=== PATIENT | female | born 1975 | race Caucasian/White ===

== ENCOUNTER 2016-10-02 00:38 | Emergency (ER) | payer OTHER ==
[2016-10-02 00:44] VITALS: BMI 23.4
[2016-10-02 01:37] LABS: BILIRUBIN,URINE NEGATIVE (NEGATIVE); BLOOD/HEMOGLOBIN,URINE 5+ (NEGATIVE); GLUCOSE, URINE NEGATIVE (NEGATIVE); KETONES,URINE NEGATIVE (NEGATIVE); LEUKOCYTE ESTERASE ,URINE NEGATIVE (NEGATIVE); NITRITES,URINE NEGATIVE (NEGATIVE); PROTEIN,URINE 1+ (NEGATIVE); UROBILINOGEN,URINE NORMAL (NORMAL)
[2016-10-02 01:49] LABS: APPEARANCE,URINE SLIGHTLY HAZY (CLEAR); BACTERIA,URINE TRACE /HPF (NEGATIVE); COLOR,URINE YELLOW (YELLOW); RBC,URINE 50-60 /HPF (NEGATIVE); SQUAMOUS EPITHELIAL CELL,UR MANY /HPF (NEGATIVE)
[2016-10-02] MEDS ORDERED: TORADOL 60 MG VIAL IM ONE (02:16)
[2016-10-02] MEDS ORDERED: NS 500 ML IV 500 ML IV ONE ×2 (02:16→02:58)
--- NOTE | 2016-10-02 02:19 | ED.ABDFE ---
HPI - Time seen Time seen: 02:00 - PCP Primary Care Physician: ERIBERTO - HPI Comment HPI Comment: Pt c/o RLQ pain w/o F/C/N/V/D/C.. She is with menses and had a c- section and BTL in April 2016.Pain is rated @7/10. - Complaint Chief Complaint Doctors Comments: "RLQ pain" Chief Complaint:: RIGHT SIDE LOWER ABD PAIN SINCE APPROX 1999 TONIGHT, DENIES ANY N/V/D. - Nurses notes reviewed Nurses Notes Review: Yes - Source History Provided: Patient - Mode of arrival Mode of Arrival: Ambulatory - Timing Onset of Chief Complaint: 10/01/16 Came on: Suddenly - Duration Duration: Intermittent How lon Duration: Hours - Location Location: RLQ - Severity Severity: Moderate - Quality Quality: Cramping - Context Onset: Suddenly : 2 Para: 2 LNMP: 10/02/16 History of: Abdominal surgery - Modifying Worsening Factors: Position, Movement Improving Factors: Nothing - Associated signs and symptoms Associated Signs and Symptoms: None <GURJIT JAUREGUI - Last Filed: 10/02/16 05:30> PMH - PMH Past Medical History: Yes Past Medical History: Hypertension Past Medical History Comment: POSSIBLE KIDNEY STONE WHILE IN MARCH( HURT ON LEFT FLANK/BACK THEN) Past Surgical History: Yes Surgical History: , Other Past Surgical History Comment: TUBALIGATION - Family History History of Family Medical Conditions: Yes Family Medical History: Diabetes Mellitus, Cancer, Hypertension - Social History Does patient currently use any type of tobacco product: No Have you used tobacco products in the last 12 months: No Type of Tobacco Use: None Does any household member use tobacco: No Alcohol Use: None Do you use any recreational Drugs:: No Lives With: Spouse, Family Lives Where: Home - infectious screening Have you traveled outside the country in the last 6 months?: No Isolation: Standard <GURJIT JAUREGUI - Last Filed: 10/02/16 05:30> ROS - Review of Systems Constitutional: No Symptoms Reported Respiratoy: No Symptoms Reported Cardiovascular: No Symptoms Reported Gastrointestinal/Abdominal: Abdominal Pain Genitourinary: Pain Neurological: No Symptoms Reported Musculoskeletal: No Symptoms Reported Integumentary: No Symptoms Reported Hematologic/Lymphatic: No Symptoms Reported Endocrine: No Symptoms Reported Psychiatric: No Symptoms Reported All Other Systems: Reviewed and Negative <GURJIT JAUREGUI - Last Filed: 10/02/16 05:30> PE - General Limitations: No Limitations General Appearance: Alert, In No Apparent Distress - Head Head Exam: Normal Inspection, Atraumatic - Chest Chest Inspection: Normal Inspection, Symmetric Chest Wall Rise - Respiratory Respiratory Exam: Normal Lung Sounds Bilat Respiratory Exam: Bilateral Clear to Auscultation - Cardiovascular Cardiovascular Exam: Regular Rate, Normal Rhythm, Normal Heart Sounds - Abdominal Exam Abdominal Exam: Normal Bowel Sounds, Soft, Tenderness. negative: Guarding, Rebound, Rigidity, Dimnished Bowel Sounds, Hyperactive Bowel Sounds Abdominal Tenderness: RLQ - Rectal Rectal Exam: Deferred - Back Back Exam: Normal Inspection, Full ROM - Extremeties Extremities Exam: Normal Inspection - External Exam: Female: Normal External Exam : Speculum Exam (Female): Deferred : Bimanual Exam (female): Deferred - Neurologic Neurological Exam: Alert, Oriented X3, CN II-XII Intact - Psychiatric Psychiatric Exam: Normal Affect, Normal Mood - Skin Skin Exam: Warm, Dry, Intact, Normal Color <GURJIT JAUREGUI - Last Filed: 10/02/16 05:30> MDM - Differential Diagnosis Differential Diagnosis- Considerations may include:: Appendicitis, Dysmenorrhea , Inflammatory BD, Ovarian cyst/torsion, Urolithiasis <GURJIT JAUREGUI - Last Filed: 10/02/16 05:30> Course - Reevaluation 1st: Improved (05/25) <GURJIT JAUREGUI - Last Filed: 10/02/16 05:30> - Consultation Called: 08:35 (Dr Hdz agreed to [facility] Call Returned: 08:40 (Agreed to see this PM) <REAGAN BENJAMIN - Last Filed: 10/02/16 08:55> ROR - Labs Reviewed Laboratory Results Reviewed?: Yes Result Diagrams: 10/02/16 02:25 10/02/16 02:25 - XRAY XRAY Interpreted by: Radiologist (no acute findings but cannot exclude early acute appendicitis.) <GURJIT JAUREGUI - Last Filed: 10/02/16 05:30> - Labs Reviewed Result Diagrams: 10/02/16 02:25 10/02/16 02:25 - XRAY XRAY Interpreted by: Radiologist (The appendix is prominent with hyper enhancing wall. This is probably best demonstrated on coronal image 21 the appendix measures 9mm. There is surrounding stranding as well. Kidneys and vasculature are normal.Impression: early acute appendicitis favored. Surgical consultation recommended. No other acute abnormality.) <REAGAN BENJAMIN - Last Filed: 10/02/16 08:55> - Labs Reviewed Laboratory: WBC 5.8 X10^3/uL (3.6-10.0) 10/02/16 02:25 RBC 4.15 X10^6/uL (3.5-5.4) 10/02/16 02:25 Hgb 13.2 g/dL (12.0-16.0) 10/02/16 02:25 Hct 37.7 % (36.0-47.0) 10/02/16 02:25 MCV 90.8 fL (80.0-100.0) 10/02/16 02:25 MCH 31.8 pg (27.0-34.0) 10/02/16 02:25 MCHC 35.1 g/dL (33.0-35.0) H 10/02/16 02:25 RDW 12.2 % (11.6-16.5) 10/02/16 02:25 Plt Count 175 X10^3/uL (150.0-450.0) 10/02/16 02:25 MPV 8.5 fL (7.4-11.0) 10/02/16 02:25 Neut % 80.5 % (42.0-75.0) H 10/02/16 02:25 Lymph % 12.0 % (21.0-51.0) L 10/02/16 02:25 [place] % 5.1 % (0.0-13.0) 10/02/16 02:25 Eos % 2.0 % (0.9-2.9) 10/02/16 02:25 Baso % 0.4 % (0.2-1.0) 10/02/16 02:25 Neut # 4.7 x10^3/uL (2.2-4.8) 10/02/16 02:25 Lymph # 0.7 X10^3/uL (1.3-2.9) L 10/02/16 02:25 [place] # 0.3 x10^3/uL (0.3-0.8) 10/02/16 02:25 Eos # 0.1 x10^3/uL (0.0-0.2) 10/02/16 02:25 Baso # 0.0 X10^3/uL (0.0-0.1) 10/02/16 02:25 Absolute Nucleated RBC 0.0 /100WBC 10/02/16 02:25 Sodium 142 mmol/L (136-145) 10/02/16 02:25 Corrected Sodium TNP 10/02/16 02:25 Potassium 4.0 mmol/L (3.5-5.1) 10/02/16 02:25 Chloride 106 mmol/L (98-107) 10/02/16 02:25 Carbon Dioxide 29.6 mmol/L (21-32) 10/02/16 02:25 BUN 9 mg/dL (7-18) 10/02/16 02:25 Creatinine 0.92 mg/dL (0.55-1.02) 10/02/16 02:25 Est GFR (MDRD) Af Amer > 60 (>60) 10/02/16 02:25 Est GFR (MDRD) Non-Af > 60 (>60) 10/02/16 02:25 Glucose 94 mg/dL (65-99) 10/02/16 02:25 Calcium 8.3 mg/dL (8.5-10.1) L 10/02/16 02:25 Corrected Calcium TNP 10/02/16 02:25 Total Bilirubin 0.70 mg/dL (0.2-1.0) 10/02/16 02:25 AST 13 Units/L (15-37) L 10/02/16 02:25 ALT 19 Units/L (12-78) 10/02/16 02:25 Alkaline Phosphatase 56 Units/L (46-116) 10/02/16 02:25 Total Protein 7.1 g/dL (6.4-8.2) 10/02/16 02:25 Albumin 3.9 g/dL (3.4-5.0) 10/02/16 02:25 Globulin 3.2 g/dL (2.5-4.5) 10/02/16 02:25 Albumin/Globulin Ratio 1.2 Ratio (1.1-2.1) 10/02/16 02:25 HCG, Qual Negative <10 mIU/mL 10/02/16 02:25 Specimen Type Clean catch urine 10/02/16 01:19 Urine Color Yellow (YELLOW) 10/02/16 01:19 Urine Appearance Slightly hazy (CLEAR) 10/02/16 01:19 Urine pH 6.0 (5.0 - 8.0) 10/02/16 01:19 Ur Specific [place] 1.015 (1.000-1.030) 10/02/16 01:19 Urine Protein 1+ (NEGATIVE) 10/02/16 01:19 Urine Glucose (UA) Negative (NEGATIVE) 10/02/16 01:19 Urine Ketones Negative (NEGATIVE) 10/02/16 01:19 Urine Occult Blood 5+ (NEGATIVE) 10/02/16 01:19 Urine Nitrite Negative (NEGATIVE) 10/02/16 01:19 Urine Bilirubin Negative (NEGATIVE) 10/02/16 01:19 Urine Urobilinogen Normal (NORMAL) 10/02/16 01:19 Ur Leukocyte Esterase Negative (NEGATIVE) 10/02/16 01:19 Urine RBC 50-60 /HPF (NEGATIVE) 10/02/16 01:19 Urine WBC 0-3 /HPF (NEGATIVE) 10/02/16 01:19 Ur Squamous Epith Cells Many /HPF (NEGATIVE) 10/02/16 01:19 Urine Bacteria Trace /HPF (NEGATIVE) 10/02/16 01:19 Ur Culture Indicated? No/not indicated 10/02/16 01:19 (GURJIT JAUREGUI) (REAGAN BENJAMIN) <GURJIT JAUREGUI - Last Filed: 10/02/16 05:30> <REAGAN BENJAMIN - Last Filed: 10/02/16 08:55> - Diagnosis Discharge Problem: Abdominal pain Qualifiers: Abdominal location: right lower quadrant Qualified Code(s): R10.31 - Right lower quadrant pain Appendicitis Qualifiers: Appendicitis type: acute appendicitis Acute appendicitis type: unspecified acute appendicitis type Qualified Code(s): K35.80 - Unspecified acute appendicitis - Discharge Plan Disposition: 01 HOME, SELF-CARE Condition: Stable Prescriptions: Naproxen Sodium [Anaprox Ds] 550 mg PO BID #30 tablet - Follow ups/Referrals Follow ups/Referrals: NFD,None [Primary Care Provider] - 3 days - Instructions Instructions: Abdominal Pain, Adult, [id number]
[2016-10-02 02:36] LABS: BASOPHILS % (AUTO) 0.4 % (0.2-1.0); EOSINOPHILS # (AUTO) 0.1 x10^3/uL (0.0-0.2); HEMATOCRIT 37.7 % (36.0-47.0); HEMOGLOBIN 13.2 g/dL (12.0-16.0); LYMPHOCYTES # (AUTO) 0.7 X10^3/uL (1.3-2.9); MEAN CORPUSCULAR HEMOGLOBIN 31.8 pg (27.0-34.0); MEAN CORPUSCULAR HGB CONC 35.1 g/dL (33.0-35.0); MEAN CORPUSCULAR VOLUME 90.8 fL (80.0-100.0); MEAN PLATELET VOLUME 8.5 fL (7.4-11.0); MONOCYTES # (AUTO) 0.3 x10^3/uL (0.3-0.8); MONOCYTES % (AUTO) 5.1 % (0.0-13.0); NEUTROPHILS # (AUTO) 4.7 x10^3/uL (2.2-4.8); NEUTROPHILS % (AUTO) 80.5 % (42.0-75.0); PLATELET COUNT 175 X10^3/uL (150.0-450.0); RED BLOOD COUNT 4.15 X10^6/uL (3.5-5.4); RED CELL DISTRIBUTION WIDTH 12.2 % (11.6-16.5); WHITE BLOOD COUNT 5.8 X10^3/uL (3.6-10.0)
[2016-10-02 02:46] LABS: ALANINE AMINOTRANSFERASE 19 Units/L (12-78); ALBUMIN 3.9 g/dL (3.4-5.0); ALKALINE PHOSPHATASE 56 Units/L (46-116); ASPARTATE AMINO TRANSFERASE 13 Units/L (15-37); BLOOD UREA NITROGEN 9 mg/dL (7-18); CALCIUM 8.3 mg/dL (8.5-10.1); CARBON DIOXIDE 29.6 mmol/L (21-32); CHLORIDE 106 mmol/L (98-107); CREATININE 0.92 mg/dL (0.55-1.02); GLUCOSE 94 mg/dL (65-99); SODIUM 142 mmol/L (136-145); TOTAL PROTEIN 7.1 g/dL (6.4-8.2); eGFR BLACK RACES > 60 (>60); eGFR NON BLACK RACES > 60 (>60)
[2016-10-02] MEDS ORDERED: TORADOL 60 MG VIAL ONE (02:58)
[2016-10-02 03:10] LABS: SERUM PREGNANCY TEST, QUAL NEGATIVE <10 mIU/mL
--- NOTE | 2016-10-02 03:27 | CT ---
CT abdomen and pelvis without contrast Indication: Right-sided pelvic pain. Comparison: None Technique: CT images of the abdomen and pelvis were obtained without contrast. Automatic exposure co ntrol was utilized. Findings: The lung bases are clear. No acute skeletal abnormality identified. Evaluation is limited by lack of contrast. Accounting for this, the liver, gallbladder, spleen, stom ach, duodenum, pancreas, adrenals, and kidneys are within normal limits. No ureteral stone identifie d. The visualized portions of the appendix appear grossly normal in size, although there is minimal fat stranding seen within the pericecal right lower quadrant. No significant bowel thickening or dil atation of the lower GI tract is identified. The uterus and ovaries are noted. No large pelvic mass is seen. The urinary bladder and rectum are unremarkable. Impression: There is minimal pericecal fat stranding, although the appendix appears grossly normal in caliber. E nelda/mild appendicitis cannot be excluded. Otherwise no etiology for patient's symptoms identified. Reported By:
[2016-10-02] MEDS ORDERED: PHENERGAN INJ 25 MG IVP ONE (05:35)
[2016-10-02] MEDS ORDERED: MORPHINE SULFATE INJ 4 MG IVP ONE (05:35)
[2016-10-02] MEDS ORDERED: NS 100 ML IV 100 ML IV ONE (07:03)
--- NOTE | 2016-10-02 08:08 | CT ---
CT abdomen and pelvis with contrast Indication: Abdomen pain and pelvic pain. Technique: Helical images through the abdomen and pelvis after IV and oral contrast. Coronal and sag ittal reformats provided. Findings: Review of bone windows shows no destructive osseous lesion. Limited images through lower c hest demonstrates no acute abnormality. Abdomen: The liver, gallbladder, spleen, adrenal glands, pancreas, stomach and small bowel appear no rmal. No acute colonic abnormality seen. The appendix is prominent with hyper enhancing wall. This i s probably best demonstrated on coronal image 21 the appendix measures 9 mm on this image. There is surrounding stranding as well. Kidneys and vasculature are normal. Pelvis: The urinary bladder, rectum and uterus are normal. No adnexal region lesion seen. Impression: 1. Early acute appendicitis favored . Surgical consultation recommended. 2. No other acute abnormality. Reported By:
[2016-10-02] MEDS ORDERED: MORPHINE SULFATE INJ 4 MG IVP PRN (09:44)
[2016-10-02] MEDS ORDERED: ZOFRAN INJ 4 MG VIAL IVP PRN ×2 (09:45→17:19)
[2016-10-02] MEDS: NS 1000 ML 1,000 ML IV SCH ×2 (09:57→20:53)
[2016-10-02] MEDS: NS IV SCH ×3 (13:23→21:00)
[2016-10-02] MEDS: SPIKE MINIBAG IV SCH ×3 (13:23→21:00)
[2016-10-02] MEDS: MEFOXIN IV SCH ×3 (13:23→21:00)
[2016-10-02] MEDS ORDERED: LR 1000 ML IV 1,000 ML IV ONE ×2 (14:06→16:57)
[2016-10-02] MEDS ORDERED: MARCAINE/EPINEPHRINE ONE (14:08)
[2016-10-02] MEDS ORDERED: XYLOCAINE 1 % (PLAIN) ONE (14:08)
[2016-10-02] MEDS ORDERED: QUELICIN (OR ANECTINE) ONE (14:36)
[2016-10-02] MEDS ORDERED: ROBINUL ONE (14:36)
[2016-10-02] MEDS ORDERED: NORCURON INJ 10 MG VIAL ONE (14:36)
[2016-10-02] MEDS ORDERED: XYLOCAINE 2 % (PLAIN) ONE (14:36)
[2016-10-02] MEDS ORDERED: DIPRIVAN VIAL ONE (14:36)
[2016-10-02] MEDS ORDERED: NEOSTIGMINE INJ ONE (14:36)
[2016-10-02] MEDS ORDERED: LTA KIT LIDOCAINE 4% ONE (14:36)
[2016-10-02] MEDS ORDERED: REGLAN INJ 10 MG VIAL ONE (14:36)
[2016-10-02] MEDS ORDERED: VERSED ONE (14:36)
[2016-10-02] MEDS ORDERED: ZOFRAN INJ 4 MG VIAL ONE (14:36)
[2016-10-02] MEDS ORDERED: SUPRANE IN ONE (14:36)
[2016-10-02] MEDS ORDERED: FENTANYL INJ 250 mcg ONE (15:35)
[2016-10-02] MEDS ORDERED: DECADRON INJ ONE (16:15)
[2016-10-02] MEDS ORDERED: NS IRRIGATION 3000 ML 3,000 ML IR ONE (16:52)
[2016-10-02] MEDS ORDERED: PERCOCET TAB 5/325 MG PO PRN (17:19)
[2016-10-02] MEDS ORDERED: DILAUDID INJ IVP PRN (17:19)
[2016-10-02] MEDS ORDERED: REGLAN INJ 10 MG VIAL IVP PRN (17:19)
[2016-10-02] MEDS ORDERED: MORPHINE SULFATE INJ 2 MG IVP PRN (17:19)
[2016-10-02] MEDS ORDERED: BENADRYL INJ 50 MG VIAL IVP PRN (17:19)
[2016-10-02] MEDS ORDERED: PHENERGAN INJ 25 MG IVP PRN (17:19)
--- NOTE | 2016-10-02 17:29 | OR.GENERIC ---
Post-Op Note Generic - Post-Op Note Operative Report: Date of Operation: October 02, 2016 Pre-Operative Diagnosis: Acute appendicitis. Post-Operative Diagnosis: Acute appendicitis. Procedure: Laparoscopic appendectomy. Surgeon: Amilcar Dubose MD. Optical Instrument Inspector: Kyle garcia CRNA. Specimen: Appendix. Estimated blood loss: Minimal. Complications: None. Summary: The patient is a 41 year old female who presented with abdominal pain. A CT of the abdomen and pelvis demonstrated appendicitis. The patient was offered appendectomy. The risk and benefits of the procedure including difficulty with anesthesia, bleeding, infection, conversion to open procedure, hernia formation , DVT, as well as PE were discussed with the patient. The patient understood these risks and requested the procedure. On October 02, 2016, the patient was brought to the operative theatre. A time out was performed verifying the patient and procedure. The patient received Ancef for pre-operative antibiosis. After satisfactory induction of general endotracheal anesthesia, the abdomen was prepped with Chloraprep and draped in the usual sterile fashion. The skin and subcutaneous tissue at the umbilicus was anesthetized using local anesthetic. The skin was incised sharply. A 12 mm trocar was placed though the incision and into the peritoneal cavity using the Germaine technique. Carbon dioxide was infiltrated through this trocar to obtain a pneumoperitoneum of 15 mm Hg. A camera was placed through this trocar and swept in all directions. No injury was seen from entering the peritoneal cavity. A site was selected in the right upper quadrant for our 2nd trocar. The skin and fascia was anesthetized using local anesthetic. The skin was incised sharply. A 5 mm trocar was placed into the peritoneal cavity under direct visualization. An additional 5 mm trocar was placed in the left lower quadrant in a similar fashion. The cecum was elevated. Mild inflammation was noted along the appendix. The appendix was elevated and a window made in the mesoappendix. The appendix was divided at the cecum using a SILVINA stapler with a tissue load. The mesoappendix was divided using a SILVINA stapler with vascular load. Arterial bleeding was noted from the mesoappendix staple line. This was controlled using an endoclip x2. No further bleeding was seen. Both staple lines were irrigated. Mild oozing was noted from the cecal staple line. This was controlled using minimal hook electrocautery. Both staple lines were again irrigated and no further bleeding seen. The appendix was placed in an endobag and removed through the umbilical trocar site. The trocar and camera were placed back inside the abdomen. All irrigation fluid was removed. The 5 mm trocars were removed under direct visualization and no bleeding seen. The umbilical trocar was removed and insufflation evacuated. The fascia at the umbilicus was re-approximated using a 0-Vicryl placed in a [id number] configuration. The skin edges at all incisions were re-approximated using inverted, interrupted 4-0 Monocryl sutures. Benzoin and Steri-strips were placed. Sterile dressings were placed. The patient was awakened and taken to the recovery room in stable condition. There were no complications. All counts were correct.
[2016-10-02] MEDS ORDERED: NORMODYNE TAB 100 MG PO SCH (21:18)
[2016-10-03] MEDS: NS 1000 ML 1,000 ML IV SCH (05:45)
[2016-10-03] MEDS: SPIKE MINIBAG IV SCH ×2 (05:45→12:15)
[2016-10-03] MEDS: NS IV SCH ×2 (05:45→12:15)
[2016-10-03] MEDS: MEFOXIN IV SCH ×2 (05:45→12:15)
[2016-10-03 06:15] LABS: ALANINE AMINOTRANSFERASE 17 Units/L (12-78); ALBUMIN 3.3 g/dL (3.4-5.0); ALKALINE PHOSPHATASE 54 Units/L (46-116); ASPARTATE AMINO TRANSFERASE 13 Units/L (15-37); BLOOD UREA NITROGEN 6 mg/dL (7-18); CALCIUM 8.4 mg/dL (8.5-10.1); CARBON DIOXIDE 28.2 mmol/L (21-32); CHLORIDE 104 mmol/L (98-107); COR NA(FOR HYPERGLY) 139 mmol/L (136-145); GLUCOSE 119 mg/dL (65-99); SODIUM 139 mmol/L (136-145); TOTAL PROTEIN 6.4 g/dL (6.4-8.2); eGFR BLACK RACES > 60 (>60); eGFR NON BLACK RACES > 60 (>60)
[2016-10-03 06:33] LABS: BASOPHILS % (AUTO) 0.1 % (0.2-1.0); HEMATOCRIT 33.1 % (36.0-47.0); HEMOGLOBIN 11.8 g/dL (12.0-16.0); LYMPHOCYTES # (AUTO) 0.3 X10^3/uL (1.3-2.9); LYMPHOCYTES % (AUTO) 6.6 % (21.0-51.0); MEAN CORPUSCULAR HEMOGLOBIN 32.2 pg (27.0-34.0); MEAN CORPUSCULAR HGB CONC 35.7 g/dL (33.0-35.0); MEAN CORPUSCULAR VOLUME 90.2 fL (80.0-100.0); MEAN PLATELET VOLUME 8.9 fL (7.4-11.0); MONOCYTES # (AUTO) 0.2 x10^3/uL (0.3-0.8); MONOCYTES % (AUTO) 3.7 % (0.0-13.0); NEUTROPHILS # (AUTO) 3.8 x10^3/uL (2.2-4.8); NEUTROPHILS % (AUTO) 89.6 % (42.0-75.0); PLATELET COUNT 142 X10^3/uL (150.0-450.0); RED BLOOD COUNT 3.67 X10^6/uL (3.5-5.4); RED CELL DISTRIBUTION WIDTH 12.1 % (11.6-16.5); WHITE BLOOD COUNT 4.2 X10^3/uL (3.6-10.0)
--- NOTE | 2016-10-03 08:54 | PCM.PROG ---
Progress Note - Progress Note for Day of Date: 10/03/16 - Subjective Subjective: Pre-op pain resolved. Admits to surgical pain but minimal. Tolerating diet. (+) OOB. - Past Medical Family Social History Allergies: Allergies MS No Known Drug Allergy [No Known Drug Allergy] Allergy (Verified 10/02/16 00: 45) - Vital Signs and I&O's Vital Signs: Temperature 97.9 F Pulse Rate [Right Brachial] 94 Pulse Rate 81 Respiratory Rate 20 Blood Pressure [Right Arm] 110/62 Blood Pressure [Left Arm] 113/71 Blood Pressure 127/71 O2 Sat by Pulse Oximetry 97 Intake and Output: Intake & Output 09/30/16 10/01/16 10/02/16 10/03/16 11:59 11:59 11:59 11:59 Intake Total 1115 Output Total 525 Balance 590 - Physical Exam Oriented: Normal Respiratory: Normal Cardiovascular: Normal Auscultation: Bowel Sounds: Normal Palpation: Normal, Other Tenderness: Other (Approp. TTP) Skin: Normal, Other (Dressings C/D/I.) Psychiatric: Normal Mood Description: Calm Speech Pattern: Clear, Appropriate - Laboratory and Diagnostics Result Diagrams: 10/03/16 04:45 10/03/16 04:45 Labs: Laboratory WBC 4.2 X10^3/uL (3.6-10.0) 10/03/16 04:45 RBC 3.67 X10^6/uL (3.5-5.4) 10/03/16 04:45 Hgb 11.8 g/dL (12.0-16.0) L 10/03/16 04:45 Hct 33.1 % (36.0-47.0) L 10/03/16 04:45 MCV 90.2 fL (80.0-100.0) 10/03/16 04:45 MCH 32.2 pg (27.0-34.0) 10/03/16 04:45 MCHC 35.7 g/dL (33.0-35.0) H 10/03/16 04:45 RDW 12.1 % (11.6-16.5) 10/03/16 04:45 Plt Count 142 X10^3/uL (150.0-450.0) L 10/03/16 04:45 MPV 8.9 fL (7.4-11.0) 10/03/16 04:45 Neut % 89.6 % (42.0-75.0) H 10/03/16 04:45 Lymph % 6.6 % (21.0-51.0) L 10/03/16 04:45 [place] % 3.7 % (0.0-13.0) 10/03/16 04:45 Eos % 0.0 % (0.9-2.9) L 10/03/16 04:45 Baso % 0.1 % (0.2-1.0) L 10/03/16 04:45 Neut # 3.8 x10^3/uL (2.2-4.8) 10/03/16 04:45 Lymph # 0.3 X10^3/uL (1.3-2.9) L 10/03/16 04:45 [place] # 0.2 x10^3/uL (0.3-0.8) L 10/03/16 04:45 Eos # 0.0 x10^3/uL (0.0-0.2) 10/03/16 04:45 Baso # 0.0 X10^3/uL (0.0-0.1) 10/03/16 04:45 Absolute Nucleated RBC 0.0 /100WBC 10/03/16 04:45 Sodium 139 mmol/L (136-145) 10/03/16 04:45 Corrected Sodium 139 mmol/L (136-145) 10/03/16 04:45 Potassium 4.4 mmol/L (3.5-5.1) 10/03/16 04:45 Chloride 104 mmol/L (98-107) 10/03/16 04:45 Carbon Dioxide 28.2 mmol/L (21-32) 10/03/16 04:45 BUN 6 mg/dL (7-18) L 10/03/16 04:45 Creatinine 0.80 mg/dL (0.55-1.02) 10/03/16 04:45 Est GFR (MDRD) Af Amer > 60 (>60) 10/03/16 04:45 Est GFR (MDRD) Non-Af > 60 (>60) 10/03/16 04:45 Glucose 119 mg/dL (65-99) H 10/03/16 04:45 Calcium 8.4 mg/dL (8.5-10.1) L 10/03/16 04:45 Corrected Calcium 9.0 mg/dL (8.5-10.1) 10/03/16 04:45 Total Bilirubin 1.30 mg/dL (0.2-1.0) H 10/03/16 04:45 AST 13 Units/L (15-37) L 10/03/16 04:45 ALT 17 Units/L (12-78) 10/03/16 04:45 Alkaline Phosphatase 54 Units/L (46-116) 10/03/16 04:45 Total Protein 6.4 g/dL (6.4-8.2) 10/03/16 04:45 Albumin 3.3 g/dL (3.4-5.0) L 10/03/16 04:45 Globulin 3.1 g/dL (2.5-4.5) 10/03/16 04:45 Albumin/Globulin Ratio 1.1 Ratio (1.1-2.1) 10/03/16 04:45 HCG, Qual Negative <10 mIU/mL 10/02/16 02:25 Specimen Type Clean catch urine 10/02/16 01:19 Urine Color Yellow (YELLOW) 10/02/16 01:19 Urine Appearance Slightly hazy (CLEAR) 10/02/16 01:19 Urine pH 6.0 (5.0 - 8.0) 10/02/16 01:19 Ur Specific [place] 1.015 (1.000-1.030) 10/02/16 01:19 Urine Protein 1+ (NEGATIVE) 10/02/16 01:19 Urine Glucose (UA) Negative (NEGATIVE) 10/02/16 01:19 Urine Ketones Negative (NEGATIVE) 10/02/16 01:19 Urine Occult Blood 5+ (NEGATIVE) 10/02/16 01:19 Urine Nitrite Negative (NEGATIVE) 10/02/16 01:19 Urine Bilirubin Negative (NEGATIVE) 10/02/16 01:19 Urine Urobilinogen Normal (NORMAL) 10/02/16 01:19 Ur Leukocyte Esterase Negative (NEGATIVE) 10/02/16 01:19 Urine RBC 50-60 /HPF (NEGATIVE) 10/02/16 01:19 Urine WBC 0-3 /HPF (NEGATIVE) 10/02/16 01:19 Ur Squamous Epith Cells Many /HPF (NEGATIVE) 10/02/16 01:19 Urine Bacteria Trace /HPF (NEGATIVE) 10/02/16 01:19 Ur Culture Indicated? No/not indicated 10/02/16 01:19 Tissue Pathology To follow 10/02/16 16:50 - Plan (1) Appendicitis Status: Acute Qualifiers: Appendicitis type: acute appendicitis Acute appendicitis type: unspecified acute appendicitis type Qualified Code(s): K35.80 - Unspecified acute appendicitis Narrative Support Text: POD #1 lap appy. AFVSS. Pain resolved. Mesoappendix staple line bleed at time of surgery. H/H dereased. Re-check at noon. If stable, OK discharge from surgery standpoint. Plan: Recheck H/H at noon. If stable discharge home. Routine post-op care.
[2016-10-03 11:56] LABS: BASOPHILS % (AUTO) 0.4 % (0.2-1.0); EOSINOPHILS % (AUTO) 0.2 % (0.9-2.9); HEMATOCRIT 33.9 % (36.0-47.0); HEMOGLOBIN 11.9 g/dL (12.0-16.0); LYMPHOCYTES # (AUTO) 0.6 X10^3/uL (1.3-2.9); LYMPHOCYTES % (AUTO) 11.5 % (21.0-51.0); MEAN CORPUSCULAR HEMOGLOBIN 31.8 pg (27.0-34.0); MEAN CORPUSCULAR HGB CONC 35.2 g/dL (33.0-35.0); MEAN CORPUSCULAR VOLUME 90.2 fL (80.0-100.0); MEAN PLATELET VOLUME 8.6 fL (7.4-11.0); MONOCYTES # (AUTO) 0.3 x10^3/uL (0.3-0.8); MONOCYTES % (AUTO) 5.6 % (0.0-13.0); NEUTROPHILS % (AUTO) 82.3 % (42.0-75.0); PLATELET COUNT 153 X10^3/uL (150.0-450.0); RED BLOOD COUNT 3.76 X10^6/uL (3.5-5.4); RED CELL DISTRIBUTION WIDTH 12.1 % (11.6-16.5); WHITE BLOOD COUNT 4.9 X10^3/uL (3.6-10.0)
[2016-10-03 14:01] VITALS: BP 134/79
== END 2016-10-03 14:35 | disposition home or self-care (01) ==
LOC: ER 00:38 → MED/SURG 10:10
PROVIDERS: ADMIT Internal Medicine; ATTEND Internal Medicine
PROC: 0DTJ4ZZ Resection of Appendix, Percutaneous Endoscopic Approach (ICD-10-PCS; principal; 2016-10-02 13:00)
DX: K35.89 Other acute appendicitis (principal); R10.31 Right lower quadrant pain; I10 Essential (primary) hypertension
CPT/HCPCS: 36415; 74176; 74177; 80053; 81001; 84703; 85025; 94760; 96365; 96372; 96374; 96375; 99145; 99217; 99284; A4216; A4222; S0020; G0378; J0330; J1100; J1885; J2001; J2250; J2270; J2405; J2710; J2765; J3010; J3490; J7120

== ENCOUNTER → 2017-01-18 | Outpatient (CLI) | payer OTHER ==
[2017-01-18 08:48] LABS: BASOPHILS % (AUTO) 0.8 % (0.2-1.0); EOSINOPHILS # (AUTO) 0.1 x10^3/uL (0.0-0.2); EOSINOPHILS % (AUTO) 4.5 % (0.9-2.9); HEMATOCRIT 39.7 % (36.0-47.0); HEMOGLOBIN 13.8 g/dL (12.0-16.0); LYMPHOCYTES # (AUTO) 0.9 X10^3/uL (1.3-2.9); LYMPHOCYTES % (AUTO) 35.4 % (21.0-51.0); MEAN CORPUSCULAR HEMOGLOBIN 30.7 pg (27.0-34.0); MEAN CORPUSCULAR HGB CONC 34.7 g/dL (33.0-35.0); MEAN CORPUSCULAR VOLUME 88.5 fL (80.0-100.0); MEAN PLATELET VOLUME 8.7 fL (7.4-11.0); MONOCYTES # (AUTO) 0.2 x10^3/uL (0.3-0.8); MONOCYTES % (AUTO) 7.5 % (0.0-13.0); NEUTROPHILS # (AUTO) 1.3 x10^3/uL (2.2-4.8); NEUTROPHILS % (AUTO) 51.8 % (42.0-75.0); PLATELET COUNT 155 X10^3/uL (150.0-450.0); RED BLOOD COUNT 4.49 X10^6/uL (3.5-5.4); RED CELL DISTRIBUTION WIDTH 12.4 % (11.6-16.5); WHITE BLOOD COUNT 2.6 X10^3/uL (3.6-10.0)
--- NOTE | 2017-01-18 08:50 | RAD ---
Examination: Chest, PA and lateral views History: Preop Findings: Normal appearance of heart, lungs, mediastinum and pleural spaces. Impression: Chest examination within normal limits. Reported By:
[2017-01-18 08:53] LABS: BLOOD UREA NITROGEN 12 mg/dL (7-18); CALCIUM 8.6 mg/dL (8.5-10.1); CARBON DIOXIDE 24.2 mmol/L (21-32); CHLORIDE 104 mmol/L (98-107); CREATININE 0.91 mg/dL (0.55-1.02); SODIUM 138 mmol/L (136-145); eGFR BLACK RACES > 60 (>60); eGFR NON BLACK RACES > 60 (>60)
[2017-01-18 09:06] LABS: APPEARANCE,URINE CLOUDY (CLEAR); COLOR,URINE YELLOW (YELLOW); GLUCOSE, URINE NEGATIVE (NEGATIVE); KETONES,URINE NEGATIVE (NEGATIVE); PROTEIN,URINE TRACE (NEGATIVE)
[2017-01-18 09:07] LABS: BACTERIA,URINE 2+ /HPF (NEGATIVE); BILIRUBIN,URINE NEGATIVE (NEGATIVE); BLOOD/HEMOGLOBIN,URINE NEGATIVE (NEGATIVE); LEUKOCYTE ESTERASE ,URINE NEGATIVE (NEGATIVE); NITRITES,URINE POSITIVE (NEGATIVE); RBC,URINE 0-3 /HPF (NEGATIVE); SQUAMOUS EPITHELIAL CELL,UR FEW /HPF (NEGATIVE); UROBILINOGEN,URINE NORMAL (NORMAL)
[2017-01-18 09:14] LABS: SERUM PREGNANCY TEST, QUAL NEGATIVE <10 mIU/mL
== END ==
LOC: LAB 08:04
PROVIDERS: ATTEND Specialist
DX: Z01.818 Encounter for other preprocedural examination (principal); Z01.810 Encounter for preprocedural cardiovascular examination; Z01.811 Encounter for preprocedural respiratory examination; B96.29 Other Escherichia coli [E. coli] as the cause of diseases classified elsewhere; N94.6 Dysmenorrhea, unspecified; N92.5 Other specified irregular menstruation; D25.9 Leiomyoma of uterus, unspecified
CPT/HCPCS: 36415; 71020; 80048; 81001; 84703; 85025; 85610; 85730; 86850; 86900; 86901; 87086; 87088; 87186; 93005; 93010

== ENCOUNTER 2017-01-20 06:22 | Inpatient (IN) | payer OTHER ==
[~2017-01-20 06:22] MED LIST: ANCEF VIAL 1 GM 1 GM in NS 50 ML IV + SPIKE MINIBAG* 50 ML IV PRN; D5 1/2 NS 1000 ML 1,000 ML IV SCH
[2017-01-20] MEDS ORDERED: ANCEF VIAL 1 GM ONE (06:24)
[2017-01-20] MEDS ORDERED: VASOSTRICT INJ 20 UNITS VIAL ONE (06:40)
[2017-01-20 07:00] VITALS: BMI 22.1
[2017-01-20] MEDS ORDERED: FENTANYL INJ 250 mcg ONE (07:01)
[2017-01-20 07:51] LABS: BILIRUBIN,URINE NEGATIVE (NEGATIVE); BLOOD/HEMOGLOBIN,URINE NEGATIVE (NEGATIVE); KETONES,URINE NEGATIVE (NEGATIVE); LEUKOCYTE ESTERASE ,URINE NEGATIVE (NEGATIVE); NITRITES,URINE POSITIVE (NEGATIVE); PROTEIN,URINE NEGATIVE (NEGATIVE); UROBILINOGEN,URINE NORMAL (NORMAL)
[2017-01-20] MEDS ORDERED: NS IRRIGATION 1000 ML 1,000 ML IR ONE (07:51)
[2017-01-20 07:56] LABS: GLUCOSE, URINE NEGATIVE (NEGATIVE)
[2017-01-20 07:57] LABS: COLOR,URINE YELLOW (YELLOW)
[2017-01-20 07:58] LABS: APPEARANCE,URINE CLEAR (CLEAR); BACTERIA,URINE TRACE /HPF (NEGATIVE); RBC,URINE 0-1 /HPF (NEGATIVE); SQUAMOUS EPITHELIAL CELL,UR RARE /HPF (NEGATIVE)
[2017-01-20] MEDS ORDERED: METHYLENE BLUE 1% INJ ONE (08:24)
[2017-01-20] MEDS ORDERED: LR 1000 ML IV 1,000 ML IV ONE (08:27)
[2017-01-20] MEDS ORDERED: METHYLENE BLUE IV ONE ×2 (08:32)
[2017-01-20] MEDS ORDERED: NS IRRIGATION IV ONE ×2 (08:32)
[2017-01-20] MEDS ORDERED: REGLAN INJ 10 MG VIAL IVP PRN (09:18)
[2017-01-20] MEDS ORDERED: BENADRYL INJ 50 MG VIAL IVP PRN ×2 (09:18→10:59)
[2017-01-20] MEDS ORDERED: PHENERGAN INJ 25 MG IVP PRN (09:18)
[2017-01-20] MEDS ORDERED: DILAUDID INJ IVP PRN (09:18)
[2017-01-20] MEDS ORDERED: ZOFRAN INJ 4 MG VIAL IVP PRN ×2 (09:18→10:59)
[2017-01-20] MEDS: DILAUDID INJ ONE ×2 (09:28→09:40)
[2017-01-20] MEDS ORDERED: NORCURON INJ 10 MG VIAL ONE (09:51)
[2017-01-20] MEDS ORDERED: NEOSTIGMINE INJ ONE (09:51)
[2017-01-20] MEDS ORDERED: QUELICIN (OR ANECTINE) ONE (09:51)
[2017-01-20] MEDS ORDERED: ZOFRAN INJ 4 MG VIAL ONE (09:51)
[2017-01-20] MEDS ORDERED: ROBINUL ONE (09:51)
[2017-01-20] MEDS ORDERED: TORADOL 30 MG VIAL ONE (09:51)
[2017-01-20] MEDS ORDERED: DIPRIVAN VIAL ONE (09:51)
[2017-01-20] MEDS ORDERED: ULTANE GAS IN ONE (09:51)
[2017-01-20] MEDS ORDERED: VERSED ONE (09:51)
[2017-01-20] MEDS ORDERED: D5 1/2 NS 1000 ML 1,000 ML IV SCH (10:59)
[2017-01-20] MEDS ORDERED: TORADOL 30 MG VIAL IVP PRN (10:59)
[2017-01-20] MEDS ORDERED: MORPHINE SULFATE PCA 30 MG IVP PRN (10:59)
[2017-01-20] MEDS: D5 1/2 NS 1000 ML 1,000 ML IV SCH ×2 (15:40→22:56)
[2017-01-20] MEDS ORDERED: MOTRIN TAB 800 MG PO PRN (22:45)
[2017-01-20] MEDS: PERCOCET TAB 5/325 MG PO PRN (22:55)
[2017-01-21 04:44] LABS: BASOPHILS % (AUTO) 0.2 % (0.2-1.0); EOSINOPHILS % (AUTO) 0.2 % (0.9-2.9); HEMATOCRIT 32.7 % (36.0-47.0); HEMOGLOBIN 11.7 g/dL (12.0-16.0); LYMPHOCYTES # (AUTO) 0.7 X10^3/uL (1.3-2.9); LYMPHOCYTES % (AUTO) 10.3 % (21.0-51.0); MEAN CORPUSCULAR HEMOGLOBIN 31.3 pg (27.0-34.0); MEAN CORPUSCULAR HGB CONC 35.8 g/dL (33.0-35.0); MEAN CORPUSCULAR VOLUME 87.3 fL (80.0-100.0); MEAN PLATELET VOLUME 9.1 fL (7.4-11.0); MONOCYTES # (AUTO) 0.5 x10^3/uL (0.3-0.8); MONOCYTES % (AUTO) 7.5 % (0.0-13.0); NEUTROPHILS # (AUTO) 5.7 x10^3/uL (2.2-4.8); NEUTROPHILS % (AUTO) 81.8 % (42.0-75.0); PLATELET COUNT 162 X10^3/uL (150.0-450.0); RED BLOOD COUNT 3.75 X10^6/uL (3.5-5.4); RED CELL DISTRIBUTION WIDTH 12.3 % (11.6-16.5)
[2017-01-21 04:46] LABS: BLOOD UREA NITROGEN 4 mg/dL (7-18); CALCIUM 8.1 mg/dL (8.5-10.1); CHLORIDE 103 mmol/L (98-107); COR NA(FOR HYPERGLY) 138 mmol/L (136-145); CREATININE 0.78 mg/dL (0.55-1.02); SODIUM 137 mmol/L (136-145); eGFR BLACK RACES > 60 (>60); eGFR NON BLACK RACES > 60 (>60)
[2017-01-21] MEDS: PERCOCET TAB 5/325 MG PO PRN ×3 (06:41→20:42)
[2017-01-21] MEDS: D5 1/2 NS 1000 ML 1,000 ML IV SCH ×2 (06:42→14:27)
[2017-01-21] MEDS ORDERED: MYLICON TAB 80 MG CHEW PO PRN (07:34)
[2017-01-21] MEDS: COLACE CAP 100 MG PO SCH ×2 (09:11→20:43)
[2017-01-21] MEDS: MILK OF MAGNESIA PO SCH ×2 (09:11)
[2017-01-21] MEDS: BACTROBAN OINT TOP SCH ×2 (13:30→22:53)
[2017-01-22] MEDS: D5 1/2 NS 1000 ML 1,000 ML IV SCH ×2 (01:47→05:24)
[2017-01-22] MEDS: BACTROBAN OINT TOP SCH (05:24)
[2017-01-22 10:11] VITALS: BP 131/77
== END 2017-01-22 09:05 | disposition home or self-care (01) | DRG 761 ==
LOC: UNDOADMIN 06:22 → LD 06:22 → OBS 06:22 → MED/SURG 09:41
PROVIDERS: ADMIT Specialist; ATTEND Specialist
PROC: 0UTC0ZZ Resection of Cervix, Open Approach (ICD-10-PCS; 2017-01-20)
PROC: 0UT70ZZ Resection of Bilateral Fallopian Tubes, Open Approach (ICD-10-PCS; 2017-01-20)
PROC: 0UT90ZZ Resection of Uterus, Open Approach (ICD-10-PCS; principal; 2017-01-20 07:30)
DX: N94.4 Primary dysmenorrhea (principal); N92.5 Other specified irregular menstruation; D25.9 Leiomyoma of uterus, unspecified; N94.89 Other specified conditions associated with female genital organs and menstrual cycle
CPT/HCPCS: 36415; 80048; 81001; 85025; 87086; 87088; 87186; A4216; A4222; A9535; J0330; J0690; J1170; J1885; J2250; J2271; J2405; J2710; J3010; J3490; J7042; J7120